=== PATIENT | male | born 1980 ===

== ENCOUNTER 2025-08-06 10:43 | Emergency (ER) | payer MEDICARE, MEDICAID, SELFPAY ==
--- NOTE | ~2025-08-06 | US_ITS ---
EXAMINATION: US TRIPLEX LOWER EXTREMITY, RIGHT CLINICAL INFORMATION: Right lower extremity posterior pain and swelling. COMPARISON: None available. TECHNIQUE: Color-flow triplex imaging with spectral analysis and compression Doppler were performed on the right lower extremity. FINDINGS: Respiratory variation, normal compression and augmented flow are noted throughout the right lower extremity. The visualized common femoral vein, superficial femoral vein, profunda femoral vein, popliteal vein and midcalf peroneal and posterior tibial venous segments show no evidence of deep venous thrombosis. There is no Ross's cyst. US/US venous duplex LE RT IMPRESSION: No evidence of deep venous thrombosis involving the right lower extremity. Electronically signed by: Diaz Carrera MD 08/06/2025 12:44 PM EDT
--- NOTE | ~2025-08-06 | XR_ITS ---
EXAMINATION: XR KNEE, RIGHT CLINICAL INFORMATION: fall. fracture? COMPARISON: None available. TECHNIQUE: Four views of the right knee. FINDINGS: There is no joint effusion. There is mild narrowing of the medial joint space. There is no soft tissue calcification. No fracture line is seen. XR/XR knee RT 4V IMPRESSION: Mild nonspecific medial joint space narrowing. Electronically signed by: Cal Flores MD 08/06/2025 11:36 AM EDT
[2025-08-06 11:03] VITALS: BP 149/81; PULSE 102; RESP 18; TEMP 36.8; O2SAT 93; BMI 27.8
--- NOTE | 2025-08-06 11:09 | ED.GENADULT ---
HPI - General Adult General Chief complaint: Extremity Problem Stated complaint: fell down, R knee inj Time Seen by Provider: 08/06/25 11:55 Source: patient Mode of arrival: ambulatory Limitations: no limitations History of Present Illness ED Provider: Patel Logan HPI narrative: 45 yold jesusita with pmh of alcohol abuse presents to the ED for right knee pain for one week after falling one week ago while drinking. patient denies hitting head or loss of conscisosness. Related Data Previous Rx's ?Medication ?Instructions ?Recorded naproxen 500 mg tablet 500 mg PO BID PRN pain #14 tabs 08/06/25 Allergies Allergy/AdvReac Type Severity Reaction Status Date / Time haloperidol (From Haldol) AdvReac Mild INVOLUNTARY Verified 08/06/25 11:06 SPASMS Review of Systems Review of Systems: Right knee pain Yes all other systems are reviewed and are negative [facility] Social History Social History Advance Directives: No Advance Directives Information Provided: No Physical Exam ED Vital Signs: Vital Signs - 24 hr 08/06/25 11:03 Temperature 98.2 F Pulse Rate 102 H Respiratory Rate 18 Blood Pressure 149/81 H Pulse Oximetry 93 Oxygen Delivery Method Room Air BMI result Body Mass Index 27.8 Const General: cooperative, healthy appearing, comfortable, no acute distress, well developed, alert, awake and Physically active Orientation/consciousness: patient oriented x3 HENMT Head: Yes normal to inspection, Yes No palpable skull fracture present, Yes normocephalic and Yes atraumatic Ears: hearing grossly normal bilaterally, external ears normal, TM's normal bilaterally, TM normal on the right, TM normal on the left, EAC's normal, mastoids normal and no periauricular adenopathy Eyes General: appearance normal, both eyes and all related structures Neck Neck: Yes normal visual inspection, Yes full ROM, Yes no lymphadenopathy, Yes no meningeal signs, Yes trachea midline, Yes supple and No tender Chest Chest palpation & inspection: normal inspection of the chest and normal palpation of entire chest wall Resp Effort & Inspection: normal respiratory effort and able to speak in complete sentences Auscultation: clear to auscultation bilaterally Cardio Jugular venous distension: no JVD Heart sounds: S1 normal heart sound present and S2 normal heart sound present GI Inspection: Yes normal to inspection Palpation (GI): Soft to palpation, not firm, nontender, no guarding and not rigid General: Yes no CVA tenderness Back/Spine/Pelvis Back: no CVA tenderness and No back tenderness Skin General skin exam: no rashes or lesions noted, elasticity normal and turgor normal Neuro General: patient oriented x3, gait normal, tone normal, moves all extremities, Normal light touch and pain sensation, no meningeal signs, no focal motor deficits, CN's II-XI intact bilaterally and normal sensation to monofilament Extrem General: Yes normal to inspection, Yes full ROM and Yes capillary refill normal Knee images:  1. positive for tenderness on palpation and slight swelling. Negative for warmth, redness, ecchymosis, stiffness, deformity, crepitus, or red streaks. Rest of extremity normal. motor, neuro, and vascular exam is intact. Psych Appearance: grossly normal, well kempt and not disheveled Course Course Course Narrative: RME: 47 yold male presents to the ED for right knee pain for one week. patient states he must have been drunk and fell. patient denies hitting head or loss of conscsiousness. positive for slight left knee swelling. Medical Decision Making Medical Decision Making [facility] Narrative: 45 yold male presents to the ED for patient denies hitting head, neck, or loss of consciousness. Patient states right knee swollen. Patient denies any fever, chills, chest pain, abdominal pain or any other complaints. Patient states no other trauma since falling last week. Patient states last drink was yesterday and there was no trauma he did not fall. Patient did not want detox. Exam positive for right medial knee swelling with tenderness. X-ray negative for fracture or effusion. We will send for ultrasound without DVT. 1:01pm: Ultrasound negative for DVT. Diagnosis contusion. Patient informed to follow up with primary care provider and orthopedic surgeon for possible MRI if no improvement. Discussed with patient to have head CT cervical spine CT due to fall last week but patient denies hitting head and refused any imaging of the head and neck. Patient explained risk of and still refused. patient is A0x3. Presently no signs of trauma on evaluation of HEENT. Patient explained worrisome signs informed to return to the ED immediately. Not suspecting compartment syndrome, cellulitis, osteomyelitis, arterial occlusion, septic joint, gout, or any other life-threatening etiology. Patient left before receiving discharge papers. Differential Diagnosis Differential Diagnoses: The differential diagnosis associated with the presentation includes (Contusion, fracture, dislocation, DVT) Admission/Observation Consideration of admission/observation: Escalation of care including admission/observation considered Independent Interpretation I performed an independent interpretation of an: Plain X-Ray and Ultrasound Radiology Impression Discussion of test interpretation with radiology: I have reviewed the radiologist's reading. Independent Historian Clinical information obtained from an independent historian. History obtained from or confirmed by: Other (patient) Prescription Management I considered prescription management with: Pain Medication Discharge Plan Discharge Clinical Impression: Knee sprain, Contusion Patient Disposition: Home, Self-Care Instructions: Knee Sprain (ED), How to Use an Elastic Bandage (ED), P.R.I.C.E. Treatment (ED) Additional Instructions: Recommend follow-up with your primary care provider and orthopedics. Return to the ED for any swelling, redness, bluish discoloration, fever, chills, stiffness, chest pain, shortness of breath, inability to walk, headache, dizziness, neck pain, or any other concerning symptoms. Prescriptions: New naproxen 500 mg tablet 500 mg PO BID PRN (Reason: pain) Qty: 14 0RF Referrals: [facility] [Provider Group, Orthopedics] - 2 days Referral Note: Contusion, knee sprain Clinical Impression: Knee sprain; Contusion Mirian Aguayo MD [Primary Care Provider, Internal Medicine] - 2 days Referral Note: Knee pain after trauma/contusion Clinical Impression: Knee sprain; Contusion Stand Alone Forms: Work/School Release Interventions: ED Discharge Assessment Last Done: 08/06/25 13:26 Discharge Date/Time: 08/06/25 13:27 Print Language: Nepalese
[2025-08-06 13:26] VITALS: BP 149/81; PULSE 102; RESP 18; TEMP 36.8; O2SAT 93
--- OUTSIDE RECORDS SUMMARY | 2025-08-06 14:40 | XMS_ITS | Clinical Summary ---
Author Organization [facility] Address [address] [place] [id number] Care Team Providers Care Ship Keeper Name Role Phone Mirian Aguayo Primary Care Provider [phone] Allergies No known active allergies Encounters Date Type Department Care Team Description 06/14/2025 3:49 AM EDT - 06/14/2025 8:09 AM EDT Emergency [facility] Emergency Department [address] [place] [id number] Harley Jack MD Girgenrath, Tanya, MD Chest discomfort (Primary Dx) Discharge Disposition: [facility] (INPT Psych facility/unit) (65) from Last 3 Months Social History Tobacco Use Types Packs/Day Years Used Date Smoking Tobacco: Never Assessed Sex and Gender Information Value Date Recorded Sex Assigned at Male 12/21/2023 10:13 PM EST Legal Sex Male 9:28 PM EST Gender Identity Not on file Sexual Orientation Not on file Last Filed Vital Signs Vital Sign Reading Time Taken Comments Blood Pressure 144/91 06/14/2025 2:33 AM EDT Pulse 86 06/14/2025 2:33 AM EDT Temperature 36.8 C (98.2 F) 06/14/2025 2:33 AM EDT Respiratory Rate 18 06/14/2025 2:33 AM EDT Oxygen Saturation 94% 06/14/2025 2:33 AM EDT Inhaled Oxygen Concentration - - Weight 88.5 kg (195 lb) 06/13/2025 11:28 PM EDT Height - - Body Mass Index - - Plan of Treatment Health Maintenance Due Date Last Done Comments Cologuard 1979 Colon Cancer Screening 1979 Colonoscopy 1979 FOBT / Fit Test 1979 HIV Screening 1979 Hepatitis C Screening 1979 Sigmoidoscopy 1979 Medicare AWV 1980 Hepatitis B Vaccines (1 of 3 - 19+ 3-dose series) 1998 DTaP,Tdap,and Td Vaccines (2 - Td or Tdap) 01/03/2022 01/04/2012 Alcohol/Substance Use Screening 11/01/2024 Depression Screening and Follow-Up 11/01/2024 Social Drivers of Health Paty ual Screening 11/01/2024 COVID-19 Vaccine (1 - 2023-2 5 season) 2025 Influenza Vaccine (#1) 2025 RSV Vaccine (60+ years old a nd patients) (1 - 1-dose 75+ series) 2054 Pneumococcal Vaccine: Pediat dionne (0-5 Years) and At-Risk Patients (6-50 Years) Aged Out No longer eligible b ased on patient's age to complete this topic Procedures * Due to [place] [employer] law, this organization might not be sharing negative HIV tests. Procedure Name Priority Date/Time Associated Diagnosis Comments XR CHEST 2 VW STAT 06/14/2025 4:32 AM EDT TROPONIN T HIGH SENSITIVITY STAT 06/14/2025 2:31 AM EDT TROPONIN T HIGH SENSITIVITY STAT 06/14/2025 12:45 AM EDT HEART & VASCULAR - SCANNED 06/14/2025 TROPONIN T HIGH SENSITIVITY STAT 06/13/2025 11:44 PM EDT BASIC METABOLIC PANEL STAT 06/13/2025 11:44 PM EDT CBC AUTO DIFFERENTIAL STAT 06/13/2025 11:44 PM EDT ECG 12-LEAD STAT 06/13/2025 11:40 PM EDT from Last 3 Months Results * Due to [place] [employer] law, this organization might not be sharing negative HIV tests. * XR Chest 2 vw. Standard (06/14/2025 4:32 AM EDT) Anatomical Region Laterality Modality Body Computed Radiogr aphy 06/14/2025 6:56 AM EDT Impressions 06/14/2025 6:56 AM EDT No acute pulmonary process. If this radiology report contains a blank impression section, it is an incomplete radiology report. Please contact the interpreting radiologist or applicable radiology division as soon as possible to obtain the completed interpretation. Workstation ID: [id number] Narrative 06/14/2025 6:56 AM EDT XR CHEST 2 VW COMPARISON: Chest radiograph from 12/22/2023 FINDINGS: There is no consolidation. Similar appearance of right apical azygos fissure. There is no pleural effusion. There is no pneumothorax. The cardiomediastinal silhouette is within normal limits. There are no acute osseous abnormalities. Resulting Agency Comment [id number] Procedure Note Zoey Vizcaino MD - 06/14/2025 XR CHEST 2 VW COMPARISON: Chest radiograph from 12/22/2023 FINDINGS: There is no consolidation. Similar appearance of right apical azygosfissure. There is no pleural effusion. There is no pneumothorax. The cardiomediastinal silhouette is within normal limits. There are no acute osseous abnormalities. IMPRESSION: No acute pulmonary process. If this radiology report contains a blank impression section, it is anincomplete radiology report. Please contact the interpreting radiologistor applicable radiology division as soon as possible to obtain thecompleted interpretation. Workstation ID: [id number] Harley Jack MD IMG XR PROCEDURES Final Result * Repeat Troponin #2 (06/14/2025 2:31 AM EDT) Only the most recent of3 resultswithin the time period is included. Troponin T High Sensitivity 11 <=21 ng/L 06/14/2025 3:30 AM EDT [facility] Comment: Hs-[id number] level of 52 ng/L or higher at 0-hour at presentation is recommended by the ESC 0/1-hour algorithm for identifying patients at high risk for ruling in acute myocardial infarction (AMI) in the appropriate clinical context. Repeat troponin testing 1-3 hours after the initial sample may be helpful in assessing for ongoing myocardial injury. Troponin elevations can be seen in several other non-infarct conditions, and the change (delta) should be evaluated in line with the [employer] Definition of AMI. Troponin baseline and serial elevation for a significant delta should be interpreted with clinical presentation, history, signs and symptoms, ECG, and biomarker concentrations. For inpatient setting: Value <12ng/L is considered negative for all genders. 0-1hr: A delta change of <3 will be considered negative/flat if chest pain onset >3 hours 0-3hr: A delta change of <7 will be considered negative/flat Blood Structure of peripheral vein / Unknown Venipuncture / Unknown 06/14/2025 2:31 AM EDT 06/14/2025 2:44 AM EDT us Harley Jack MD LAB BLOOD ORDERABLES Final Res ult [facility] [address] [place] [id number], [place] * HEART & VASCULAR - SCANNED (06/14/2025) Anatomical Region Laterality Modality Other us Onbase Scan Justine SCANNED PROCEDURES Final Resu lt * (ABNORMAL) CBC Auto Differential (06/13/2025 11:44 PM EDT) WBC 5.8 3.8 - 10.8 10*3/uL 06/13/2025 11:52 PM EDT [facility] RBC 3.43(L) 4.20 - 5.80 10*6/uL 06/13/2025 11:52 PM EDT [facility] Hemoglobin 11.2(L) 13.2 - 17.1 g/dL 06/13/2025 11:52 PM EDT [facility] Hematocrit 33.6(L) 38.5 - 50.0 % 06/13/2025 11:52 PM EDT [facility] MCV 98.0 80.0 - 100.0 fL 06/13/2025 11:52 PM EDT [facility] MCH 32.7 27.0 - 33.0 pg 06/13/2025 11:52 PM EDT [facility] MCHC 33.3 32.0 - 36.0 g/dL 06/13/2025 11:52 PM EDT [facility] RDW 14.6 11.0 - 15.0 % 06/13/2025 11:52 PM EDT [facility] Platelets 159 140 - 400 10*3/uL 06/13/2025 11:52 PM EDT [facility] MPV 10.2 7.5 - 12.5 fL 06/13/2025 11:52 PM EDT [facility] Neutrophil % 72.4 % 06/13/2025 11:52 PM EDT [facility] Immature Grans % 0.2 0.0 - 0.9 % 06/13/2025 11:52 PM EDT [facility] Lymphocyte % 16.5 % 06/13/2025 11:52 PM EDT [facility] Monocyte % 9.5 % 06/13/2025 11:52 PM EDT [facility] Eosinophil % 0.9 % 06/13/2025 11:52 PM EDT [facility] Basophil % 0.5 % 06/13/2025 11:52 PM EDT [facility] Neutrophil # 4.21 1.50 - 7.80 10*3/uL 06/13/2025 11:52 PM EDT [facility] Immature Grans # <0.03 <=0.03 10*3/uL 06/13/2025 11:52 PM EDT [facility] Lymphocyte # 1.00 0.85 - 3.90 10*3/uL 06/13/2025 11:52 PM EDT [facility] Monocyte # 0.60 0.20 - 0.95 10*3/uL 06/13/2025 11:52 PM EDT [facility] Eosinophil # 0.10 0.02 - 0.50 10*3/uL 06/13/2025 11:52 PM EDT [facility] Basophil # <0.03 0.00 - 0.20 10*3/uL 06/13/2025 11:52 PM EDT [facility] nRBC % 0.0 /100 WBCs 06/13/2025 11:52 PM EDT [facility] nRBC # <0.01 <0.01 10*3/uL 06/13/2025 11:52 PM EDT [facility] Blood Structure of peripheral vein / Unknown Venipuncture / Unknown 06/13/2025 11:44 PM EDT 06/13/2025 11:44 PM EDT us Harley Jack MD LAB BLOOD ORDERABLES Final Res ult [facility] [address] [place] [address], * (ABNORMAL) Basic Metabolic Panel (06/13/2025 11:44 PM EDT) NA 139 135 - 145 mmol/L 06/14/2025 12:17 AM EDT [facility] K 4.3 3.5 - 5.3 mmol/L 06/14/2025 12:17 AM EDT [facility] Cl 99 98 - 107 mmol/L 06/14/2025 12:17 AM EDT [facility] CO2 26 22 - 32 mmol/L 06/14/2025 12:17 AM EDT [facility] BUN 10 7 - 23 mg/dL 06/14/2025 12:17 AM EDT [facility] Creatinine 0.63 0.60 - 1.30 mg/dL 06/14/2025 12:17 AM EDT [facility] Glucose 101(H) 65 - 99 mg/dL 06/14/2025 12:17 AM EDT [facility] Calcium 9.4 8.6 - 10.5 mg/dL 06/14/2025 12:17 AM EDT [facility] Anion Gap 14 5 - 15 06/14/2025 12:17 AM EDT [facility] eGFR >90 >=60 mL/min/1. 73m2 06/14/2025 12:17 AM EDT [facility] Comment:The estimated glomer ular filtration rate (eGFR) is calculated using a new formula developed by the NKF-ASN task force to eliminate race-based correction factors. The new formula uses serum/plasma creatinine, age, and gender to determine eGFR. A value below 60mls/min might indicate kidney disease and will be flagged. For additional information, see Najera et al, Am J Kidney Dis. 2021;79(2):268- 288, A Unifying Approach for GFR estimation: Recommendations of the NKF-ASN Task Force on Reassessing the Inclusion of Race in Diagnosing Kidney Disease . Blood Structure of peripheral vein / Unknown Venipuncture / Unknown 06/13/2025 11:44 PM EDT 06/13/2025 11:44 PM EDT us Harley Jack MD LAB BLOOD ORDERABLES Final Res ult [facility] [address] [place] [address], * ECG 12 lead (06/13/2025 11:40 PM EDT) Ventricular Rate EKG 104 BPM MUSE EKG Atrial Rate 104 BPM MUSE EKG CO Interval 128 ms MUSE EKG QRS Interval 86 ms MUSE EKG QT Interval 346 ms MUSE EKG QTC Interval 454 ms MUSE EKG P [place] 31 degrees MUSE EKG R [place] -23 degrees MUSE EKG T Wave [place] 19 degrees MUSE EKG 06/13/2025 11:4 0 PM EDT 06/20/2025 8:10 PM EDT Impressions MUSE EKG - 06/20/2025 8:10 PM EDT SINUS TACHYCARDIA T WAVE ABNORMALITY CONSIDER ISCHEMIA ABNORMAL ECG Baseline artifact affects interpretation SUGGEST REPEAT EKG Confirmed by Armin Weiss ([id number]) on 06/20/2025 8:10:18 PM Narrative Procedure Note Armin Weiss MD - 06/20/2025 IMPRESSION: SINUS TACHYCARDIA T WAVE ABNORMALITY CONSIDER ISCHEMIA ABNORMAL ECG Baseline artifact affects interpretation SUGGEST REPEAT EKG Confirmed by Amrin Weiss ([id number]) on 06/20/2025 8:10:18 PM Harley Jack MD ECG ORDERABLES Final Result MUSE EKG from Last 3 Months Insurance MEDICARE [facility] Care Teams Ship Keeper Relationship Specialty Start Date End Date Mirian Aguayo PCP - General Internal Medicine 12/21/23
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
== END 2025-08-06 13:27 | disposition home or self-care (01) ==
PROVIDERS: Emergency Provider Emergency Medicine; PCP Internal Medicine
DX: S83.91XA Sprain of unspecified site of right knee, initial encounter (principal); W19.XXXA Unspecified fall, initial encounter; Y93.9 Activity, unspecified; Y92.9 Unspecified place or not applicable; Y99.9 Unspecified external cause status; M25.561 Pain in right knee; M79.604 Pain in right leg
CPT/HCPCS: 73564; 93971; 99282; 99284

== ENCOUNTER → 2025-08-06 11:08 | Outpatient (BNV) | payer MEDICARE, MEDICAID, SELFPAY | PROVIDERS: Emergency Provider Emergency Medicine; PCP Internal Medicine; Visit Provider Radiology Diagnostic Radiology | DX: R22.41 Localized swelling, mass and lump, right lower limb (principal); M25.561 Pain in right knee | CPT/HCPCS: 93971 ==